=== PATIENT | female | born 1980 | race Caucasian/White ===

== ENCOUNTER 2017-04-07 16:57 | Observation (INO) | payer OTHER ==
[~2017-04-07] VITALS: Ht 152.4 cm; Wt 54.4 kg
[~2017-04-07 16:57] MED LIST: ADVIL200 MG PO; AMITRIPTYLINE H10 MG PO; AMLODIPINE BESY10 MG PO; ATIVAN1 MG PO; AZITHROMYCIN250 MG PO; BACLOFEN10 MG PO; BUPROPION XL150 MG PO; BUPROPION XL300 MG PO; BUSPIRONE HCL15 MG PO; CARVEDILOL12.5 MG PO; CARVEDILOL25 MG PO; DIAZEPAM10 MG PO; DICYCLOMINE HCL10 MG PO; FLUOXETINE HCL20 M1 PO; FLUOXETINE HCL20 MG PO; GABAPENTIN600 MG PO; HYDROCODON-ACE1 EA14 PO; LEVOTHYROXINE50 MCG PO; LIDOCREAM5 GM TOP; LORAZEPAM2 MG PO; MACROBID 100 M100 MG PO; MELATONIN1 MG PO; MICROGESTIN FE1 EAC1 PO; MULTIVITAMINS1 EAC7 PO; NORCO 5-325 TA1 EACH PO; NORCO 7.5-3251 EACH PO; NORETHIND-ETH1 EACH PO; NORTRIPTYLINE H50 MG PO; PRAVASTATIN SOD20 MG; QUETIAPINE FUMA25 MG PO; TRAMADOL HCL50 MG PO; VICODIN 5-3001 EACH; VICODIN ES 7.51 EAC1 PO
--- NOTE | 2017-04-07 19:10 | EKG ---
[facility] [address] [place] [address] Signed Unusual P axis, possible ectopic atrial rhythm Lateral infarct , age undetermined Abnormal ECG No previous ECGs available Confirmed by MACARIO SALDAÑA MD ([id number]) on 04/07/2017 7:09:48 PM Electronically Signed By: MACARIO SALDAÑA MD 04/07/171909 PATIENT NAME: KARYN BLANK Electrocardiogram DATE OF : 80 PHYSICIAN: MACARIO SALDAÑA MD REPORT #: [id number] REPORT IS CONFIDENTIAL AND NOT TO BE RELEASED WITHOUT AUTHORIZATION
--- NOTE | 2017-04-08 01:21 | NUR ---
PT ROUSES TO SOUND. PERRL MODERATE RESPONSE. SLEEPING IN ROOM. VS WNL, SYSTOLIC BP 140'S - PT'S BASELINE IS 120-130'S PER . LR BOLUS INFUSING DUE TO PT HAS NOT VOIDED, AFEBRILE, 1 LPM NC - RT ASSESSED PT AT MN, 1 LPM ACCEPTABLE DUE TO PT BREATHING SLIGHTLY SHALLOW. SR 70'S. PT SPEAKS CLEARLY, NO OBVIOUS WEAKNESS, PT HOME MED LIST ACCURATE OTHER THAN PT FLUOXETINE DOSAGE IS 40 MG PER .
--- NOTE | 2017-04-08 02:00 | NUR ---
PT HAS BECOME LOUD, ANGRY AND TELLING STAFF AND THAT SHE IS GOING TO LEAVE. IN TO TALK WITH PT AND ATTEMPT TO CALM/DIFFUSE THE SITUATION. TALKED WITH PT APPROX THIRTY MINUTES. PT IS VERY TALKATIVE, SOUNDING VERY ANGRY ABOUT LIFE SITUATION, ESPECIALLY HER LIVING SITUATION AND THE WAY HER FAMILY TREATS HER. DURING THIS CONVERSATION PT COMMENTED SEVERAL TIMES ABOUT HER INTENT ON SELF-HARM. ASKED HOW MANY TIMES SHE HAS TRIED TO OD AND SHE STATED "THIRTEEN, THAT'S THE PROBLEM, IT NEVER WORKS". EXPLAINED TO PT THE IMPORTANCE OF MONITORING HER FOR THE NIGHT AND TO EVALUATE RISK OF SUICIDE AND PT STATES "I DONT CARE" SEVERAL TIMES IN REGARDS TO HER LIFE AND HEALTH. PLAN FOR [facility] CONSULT EXPLAINED TO PT AND SHE STATES "ILL TALK TO THEM. I KNOW HOW THIS WORKS JHON DONE IT BEFORE. ILL JUST TELL THEM WHAT IT TAKES TO GET OUT OF HERE. ILL TELL THEM IM FINE AND I DON'T WANT TO HURT MYSELF SO I CAN GO HOME". EXPLAINED TO PT THAT IT IS NOT SAFE FOR THE HOSPITAL TO LET HER GO AT THIS TIME, IF SHE TRIES TO LEAVE POLICE WILL BE CALLED, SHE IS ANGRY ABOUT THAT BUT NO LONGER THREATENING TO PULL OUT HER IV AND LEAVE. STATES "OKAY, ILL WAIT AND TALK TO [facility] AND TELL THEM WHAT THEY WANT TO HEAR". ENCOURAGED PT TO BE HONEST AND OPEN WITH STAFF AND [facility] ABOUT HOW SHE IS FEELING. ONCE INOCENTE FROM [facility] ARRIVES, OUT TO TALK WITH IN HALLWAY FOR APPROX THIRTY MINUTES ABOUT PTS NARCOTIC ADDICTION, RISK FOR SUICIDE AND FUTURE OVERDOSE AND LIFE CIRCUMSTANCES AND ISSUES.
--- NOTE | 2017-04-08 03:42 | NUR ---
PT RR SHALLOW UPON ARRIVAL TO THE UNIT. PT OBTUNDED, COULD NOT HOLD EYELIDS OPEN FOR 5 SECONDS WITHOUT FALLING TO SLEEP. PUPILS 7 MM WITH SLUGGISH RESPONSE TO LIGHT. LUNGS CLEAR, ROUSES TO NAME, SHOULDER SHAKEN, FOR APPROXIMATELY 5 SECONDS, THEN FALLS TO SLEEP. BP 120-150 SYSTOLIC, 140'S MOST OF THE TIME. HR SR WNL. RR 14-22. RT ASSESSED PT AT [place], LUNGS CLEAR. PT PLACED ON 1 LPM NC AT 2300 DUE TO MOUTH BREATHING, CHIN TUCKED, O2SAT 99% ON RA, PT SNORING LIGHTLY, BRIEF MOMENTS OF APNEA OF APPROX. 10-13 SECONDS RARE. ASSIGNED RN IN PT'S ROOM FOR THE FIRST 2 HOURS AFTER ADMIT MOST OF THE TIME. IVF TO REPLACE K+ AND MG, PT HAS NOT VOIDED SINCE STRAIGHT CATH PROCEDURE IN ER. LR BOLUS [address]. SALDAÑA AT [place] APPROXIMATELY REGARDING PT HAS NOT VOIDED AND LR BOLUS INITIATED. CHECK PT'S BLADDER BY BLADDER SCAN IF PT HAS NOT VOIDED IN 4 HOURS. PT ROUSED X 1 AT APPROX. [phone] AND OPENED EYES AND SCOOTED UP IN BED, SPOKE CLEARLY. 0110 PT ROUSED AND SAID SHE WANTS TO LEAVE. EXPLAINED TO PT THAT K+ REPLACEMENT AND MAGNESIUM IV PIGGYBACK INFUSED/INFUSING AND THAT PHYSICIAN NEEDS TO VISIT PT IN A.M. AND VERIFY MEDICAL STABILITY. PT VERBALIZED THAT SHE WANTS TO LEAVE, SAID SHE IS GOING TO "TEAR THESE THINGS OUT" - GESTURING TO IV TUBING ON ARMS/BP CUFF. EXPLAINED TO PT SHE NEEDS TO STAY IN UNIT UNTIL A.M., PT VERBALIZED, " IT IS A.M.," EXPLAINED UNTIL PHYSICIAN VISITS AND UNTIL A.M. - 8 A.M. PT CONTINUED TO VERBALIZE SHE WANTS TO GO HOME. DISCUSSED WITH PT THAT A CALL CAN BE PLACED TO THE DOCTOR, AND THAT THE PHYSICIAN CAN BETTER EXPLAIN. PT RECEPTIVE TO TALKING TO THE PHYSICIAN. CALL PLACED TO DR. SALDAÑA REGARDING PT WANTS TO GO HOME. DR. SALDAÑA REQUESTED CALL TO [facility] - PT CANNOT LEAVE THE HOSPITAL. CALL PLACED TO [facility] AT APPROXIMATELY 0210, WILLIAM, AND PT'S MEDICAL CONDITION AND BEHAVIOR BRIEFLY DESCRIBED. WILLIAM FROM [facility] ARRIVED AT 0236. YENIFER SHEPHERD AND MILL STENCILER TALKED TO THE PT. WILLIAM PROVIDED A DOCUMENT REGARDING THE PT TO THE CCU WHICH WILLIAM DISCUSSED WITH THE PT. PT REFUSED TO SIGN THE DOCUMENT WHICH STATES THAT PT IS BEING HELD IN THIS HOSPITAL DUE TO SUICIDE ATTEMPT WITH SEVERAL PRIOR SUICIDE ATTEMPTS. A BOX ON THE FORM "I REQUEST AN SALESPERSON DRIVER" "YES" BOX CHECKED ON THE FORM. THE DOCUMENT INDICATES THAT ANYTHING THE STAFF OBSERVES THE PT DO OR SAY WHILE HELP MAY BE USED EVIDENCE IN A COURT OF LAW TO DETERMINE WHETHER PT SHOULD BE COMMITTED A MENTALLY ILL PERSON. WILLIAM COLEMAN PROVIDED A COPY OF THE DOCUMENT TO THE CCU WHICH WAS PLACED IN THE PT'S CHART. PT'S ROOM IS DIRECTLY IN FRONT OF THE NURSE'S STATION, PT'S ROOM LIGHTS ARE ON, PER PT'S REQUEST. PT'S BLOOD SUGAR AFTER ADMISSION TO THE UNIT IS 136. PT'S WAS IN PT'S ROOM FROM THE TIME OF ADMISSION UNTIL 0300. PT'S LEFT PT'S ROOM TO HAVE A CONVERSATION WITH WILLIAM COLEMAN FROM [facility]. 0240 - PT IN ROOM WITH WILLIAM COLEMAN HAVING DISCUSSION REGARDING THE DOCUMENT. YENIFER SHEPHERD AND MILL STENCILER HAVING A CONVERSATION WITH THE PT'S OUTSIDE OF THE ROOM.
--- NOTE | 2017-04-08 04:48 | NUR ---
0430 PT ASLEEP IN ROOM, SUPINE IN BED, NO ACUTE DISTRESS.
--- NOTE | 2017-04-08 04:51 | NUR ---
PT'S RETURNED TO THE PT'S ROOM AT 0430. 0455 - PT SLEEPING IN BED AND SLEEPING IN ROOM.
--- NOTE | 2017-04-08 05:41 | NUR ---
6659 - CALL PLACED TO DR. SALDAÑA REGARDING PT'S BP'S, PT IS SUPINE IN BED WITH HOB AT 30 DEGREES. PT IS STRESSED/ANGRY - VERBALIZES THAT HER BP INCREASES WHEN SHE IS STRESSED/ANGRY. REPORTED THAT PT IS IN A 24 HR POLICE CUSTODY HOLD OF 254. PT HAS [employer] PLAN PER [facility] WILLIAM COLEMAN, LOCATING PSYCHIATRIC BED MAY BE DIFFICULT DUE TO PT NOT MEDICALLY STABLE, WITHDRAWAL FROM MEDICATIONS, MEDICAL STABILITY WILL NEED TO OCCUR FIRST. DR. SALDAÑA WILL VISIT PT THIS A.M. AND ASSESS BP'S WHEN PT IS NOT ANGRY SHE IS AT THIS TIME.
--- NOTE | 2017-04-08 06:46 | NUR ---
PT IS AWAKE, WATCHING TV.
--- NOTE | 2017-04-08 07:35 | NUR ---
0300 - PT'S NOT PRESENT IN ROOM. 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 PT CONCERNED ABOUT NOT BEING ABLE TO WORK TODAY. ASSURED PT THAT HOSPITAL STAFF CAN CONTACT HER JOB WITHOUT PROVIDING DETAILS. PT ANGRY REGARDING A JEW RELATIVE WHO HAS VISITED HER AND SHE DOES NOT ENJOY THE RELATIONSHIP. PT VERBALIZED SHE IS STRESSED BECAUSE SHE ADDITIONALLY CONCERNED ABOUT BEING HOMELESS DUE TO HER MOTHER TO WHOM SHE IS A CAREGIVER IS SELLING HER HOUSE, SHE AND HER DO NOT HAVE ARRANGEMENTS TO WHERE THEY WILL LIVE. PT IS A/O TO SELF, PLACE, DATE, WATCHING TV THIS A.M. AFTER GRADUALLY ROUSING. BED ALARM ON TO PREVENT EXIT. PT VERBALIZED SHE COULD LEAVE THE ROOM AND STAFF WOULD NOT KNOW. PT'S ROOM IS DIRECTLY IN FRONT OF THE NURSE'S STATION AND PT'S BED ALARM IS ON. PT IS CURRENTLY ON A 24 HR POLICE CUSTODY HOLD. PT IS ANGRY BECAUSE SHE IS "TOLD TO BE HONEST AND THEN FEELS NOBODY IS REALLY LISTENING TO HER." EXPLAINED TO PT THAT SHE CANNOT LEAVE THE HOSPITAL DUE TO NUMEROUS HX OF SELF HARM ATTEMPTS. PT VERBALIZED THIS A.M. THAT SHE ONLY TOOK 1-2 PILLS. PT AND ARGUING REGARDING HER IS SNORING ON THE COUCH IN THE ROOM AND SHE CAN'T SLEEP. OFFERED PT EARPLUGS WHICH SHE SAID ARE INEFFECTIVE DUE TO TINNITUS. PT VERBALIZED HE DOESN'T HAVE THE PHONE WITH HIM. DESCRIPTION OF PT'S HOLD DESCRIBED TO HER THIS A.M. BY ASSIGNED RN. PT THEN VERBALIZED THAT SHE IS SUPPOSED TO BE ASSERTIVE AND HONEST AND THEN TOLD SHE BETTER BE CAUTIOUS TO WHAT SHE SAYS. PT'S DOES APPEAR TO BE ASLEEP IN THE ROOM. PT VERBALIZED THAT [facility] WILL LEAVE HER HERE TODAY AND DID NOT BELIEVE THAT SHE WOULD BE VISITED AGAIN. HOSPITALIST PER EARLIER NURSE'S NOTE WILL VISIT PT THIS A.M.
--- NOTE | 2017-04-08 08:00 | NUR ---
PT WAS SLEEPING AND SNORE WHEN STAFF ENTER THE ROOM, RESP RATE REGULAR AND SPO2 WAS 99% ON ROOM AIR. PT ALSO ASLEEP IN ROOM AT THIS TIME.
--- NOTE | 2017-04-08 09:21 | NUR ---
PT ASSESSMENT COMPLETE, COOPERATIVE WITH HOSPITAL ROUTINE, SAKED IF SHE WAS GOING TO TALK WITH [facility] THIS AM. SHE ALSO WANTS TO TALK TO SOMEONE DIFFERENT THAN THE CRISIS STAFF FROM LAST NIGHT. "SHE WAS NOT VERY AHPPY TO BE HERE AT 2AM" "SHE SMIRKED WHEN SHE WALKED INTO THE ROOM". THIS INSTRUMENT SETTER EXPLAINED THAT STAFF KNOWS THAT THEY NEED TO COME BACK AND TALK AND THEY WILL SHOW UP WHEN AVAILABLE OR I WILL CALL THEM TO GET A TIME.
--- NOTE | 2017-04-08 10:38 | NUR ---
PT DIET WAS ADVANCED TO ANYTHING, BUT SHE CONTIOUES TO REFUSE TO EAT OR DRINK AT THIS TIME. IS AT THE BEDSIDE. PT IS TALKTIVE AND CHEERFUL.
--- NOTE | 2017-04-08 11:30 | NUR ---
ORIN NOTIFIED THAT PT IS MEDICALY CLEARED AND THAT THEY CRISIS STAFF CAN COME AND TALK WITH HER. SHIKHA'S STATES "THE [facility] [employer] THAT IS TAKING CARE OF HER CASE WILL NOT BE IN TILL 5PM" EXPLAINED THAT THE PT IS MEDICALLY CLEARED AND THAT 5PM IS TOO LATE TO BE REVALUATED. THEY SAID THEY WILL [facility]ALK WITH [facility] AND GET BACK TO [facility]." IT IS NOW NOON AND THIS [facility] HAS NOT HEARD BACK FROM THEY OF YET.
--- NOTE | 2017-04-08 12:02 | NUR ---
PT ASKED IF SHE WOULD LIKE THE INFLUENZA VACCINE, INFORMATION GIVEN TO PT AT THIS TIME.
--- NOTE | 2017-04-08 13:00 | NUR ---
TALKED WITH RICHARD FROM [facility] REGARDING THE ENGINE MONITOR HOLD. IT WAS AKSED IF SHE COULD GO TO THE PRISON WHILE ON THE HOLD DUE TO SHE IS CURRENTLY MEDICAL CLEARED AT THIS TIME. IT WAS EXPLAINED TO STAFF THE IF PLACED ON A DIRECTOR HOLD THEN SHE WILL STAY AT THE HOSPITAL TILL A CRISIS BED IS FOUND FOR HER IN THE STATE. THIS WAS EXPLAINED TO [employer] [facility]ET[employer] AIDE COOK AND TO SURI CONSTANTINO. DR SALDAÑA WILL BE NOTIFIED ONCE IT IS DETERMINED WERE WE ARE AT WITH THIS PROCESS OF A DIRECTOR HOLD.
--- NOTE | 2017-04-08 14:09 | NUR ---
RICHARD FROM [facility] IS PRESENT AND TALKING WITH PT AND HER AT THIS TIME.
--- NOTE | 2017-04-08 15:31 | NUR ---
[facility] CONTIOUES TO TALK WITH PT AND , BUT SHE WILL BE DISCHARGED WITH A SAFTERY PLAN. DR SALDAÑA INFORMED AND HE WILL PUT DISCHARGE ORDERS INPLACE.
--- NOTE | 2017-04-08 16:50 | NUR ---
AFTER SHIKHA'S RICHARD [facility] TALKED WITH PT AND PLACED A [employer] PLAN AND ENCOURAGE A&D TREATMENT AN OUTPATIENT. PT WAS DISCHARGED HOME, ALL QUESTIONS ANSWERED AND PT WILL BE INCHARGE OF HER MEDICATIONS. PT WAS GIVEN FLU INJECTION IN HER LEFT ARM. PT WAS LAUGHING AND JOKING WITH AND STAFF AT DISCHARGE. PT STATES SHE UNDERSTANDS ALL HER INSTRUCTIONS.
== END 2017-04-08 16:40 | disposition home or self-care (01) ==
LOC: ED 16:57 → CCU 16:59 → ED 21:23 → CCU 21:23
PROVIDERS: ADMIT Internal Medicine
DX: T40.2X2A Poisoning by other opioids, intentional self-harm, initial encounter (principal); R40.0 Somnolence; R06.89 Other abnormalities of breathing; E03.9 Hypothyroidism, unspecified; I10 Essential (primary) hypertension; E87.6 Hypokalemia; M54.9 Dorsalgia, unspecified; G89.29 Other chronic pain; F41.8 Other specified anxiety disorders; Z23 Encounter for immunization; Z91.5 Personal history of self-harm; Z79.1 Long term (current) use of non-steroidal anti-inflammatories (NSAID); Z79.891 Long term (current) use of opiate analgesic; Z79.899 Other long term (current) drug therapy
CPT/HCPCS: 36415; 51701; 80053; 80176; 81001; 83735; 84443; 84703; 85025; 90674; 93005; 93010; 96361; 96374; 99285; G0008; G0378; G0480; J3475; J7120